=== PATIENT | female | born 1975 | race Caucasian/White ===

== ENCOUNTER → 2022-01-18 | Outpatient (CLI) | payer BC | LOC: RAD 11:09 | DX: R07.81 Pleurodynia (principal); S22.41XA Multiple fractures of ribs, right side, initial encounter for closed fracture | CPT/HCPCS: 71101 ==

== ENCOUNTER → 2022-02-14 | Outpatient (CLI) | payer BC | LOC: EXRD 14:52 | DX: Z13.820 Encounter for screening for osteoporosis (principal); S22.39XA Fracture of one rib, unspecified side, initial encounter for closed fracture; X58.XXXA Exposure to other specified factors, initial encounter | CPT/HCPCS: 77080 ==